=== PATIENT | female | born 1955 | race Caucasian/White ===

== ENCOUNTER 2019-12-30 07:41 | Emergency (ER) | payer BC, SELFPAY ==
[2019-12-30 07:47] VITALS: BP 151/69; PULSE 70; RESP 18; TEMP 36; O2SAT 97
--- NOTE | 2019-12-30 08:25 | ED.DENTAL ---
HPI - Dental/Oral General Chief complaint: Dental/Oral Stated complaint: dental pain Time Seen by Provider: 12/30/19 08:09 History of Present Illness HPI Narrative: Pain and swelling around lower molars on the left for a few days. Acutely worse in the past 24 hours. Tried getting in to see her dentist without success. She has a h/o prior dental abscess requiring surgery. No fever, SOB, dysphagia, or other complaints. Related Data Home Medications Medication Instructions Recorded Confirmed albuterol sulfate INHALATION 12/30/19 sertraline mg 12/30/19 Allergies Allergy/AdvReac Type Severity Reaction Status Date / Time mold Allergy Unknown Unknown Verified 12/30/19 07:50 Review of Systems Review of Systems: All systems reviewed & are unremarkable except as noted in HPI and below Constitutional: Constitutional: Denies fever(s) Eyes: Eyes: Denies change in vision ENT: Denies dysphagia and Denies sore throat Cardiovascular: Cardiovascular: Denies chest pain Respiratory: Respiratory: Denies dyspnea Gastrointestinal: Gastrointestinal: Denies nausea PMFSH Past Medical History Medical History (Updated 12/30/19 @ 10:07 by Lauri Sapp MD) Celiac disease Dental abscess Family History Family History Mother Family history of lung cancer Father Family history of coronary artery disease Social History Social History Smoking status: Current every day smoker Gender identity (if verbalized by the patient): Female Exam Const: General: healthy appearing, no acute distress and alert Orientation/consciousness: patient oriented x3 Limitations: no limitations HENMT: Other: Swelling, erythema, and fluctuant mass at left lower molars Eyes: Pupils: Equal, round and reactive pupils present Neck: Neck: normal visual inspection and no lymphadenopathy Resp: Effort & Inspection: normal respiratory effort Auscultation: clear to auscultation bilaterally Cardio: Rate: regular rate Rhythm: regular rhythm Skin: General skin exam: normal color Neuro: General: patient oriented x3 Speech: normal speech Course Vital Signs Vital signs: Vital Signs Temperature 36.0 C L 12/30/19 07:47 Pulse Rate 70 12/30/19 07:47 Respiratory Rate 18 12/30/19 07:47 Blood Pressure 151/69 H 12/30/19 07:47 Pulse Oximetry 97 12/30/19 07:47 Temperature 36.0 C L 12/30/19 07:47 Pulse Rate 67 12/30/19 10:17 Respiratory Rate 17 12/30/19 10:17 Blood Pressure 137/86 12/30/19 10:17 Pulse Oximetry 98 12/30/19 10:17 Procedures Abscess I/D oral: Date of Incision: 12/30/19 Time of Incision: 09:24 Side (if applicable): left Sedation/analgesia: none Local Anesthetic: lidocaine 1% and with epi Amount of anesthesia used (mL): 3 Technique: needle aspiration Amount of fluid expressed (mL): 0 Packing used?: none I&D Results: Nothing Abcess I&D Additional Comments: Swelling seems slightly reduced and fluctuant mass seems to be resolved although no pocket was found. Discharge Plan Discharge Clinical Impression: Dental infection Patient Disposition: Home, Self-Care Condition: Stable Instructions: Antibiotic Form, Dental Abscess (ED) Prescriptions: New penicillin V potassium 500 mg tablet 500 mg PO Q8H Qty: 30 RF: 0 No Action sertraline 100 mg tablet RF: 0 albuterol sulfate 90 mcg/actuation HFA aerosol inhaler INHALATION RF: 0 Follow-up/Referrals: Dale Wiseman MD [Primary Care Provider] - Stand Alone Forms: Work/School Release IP Discharge Date/Time: 12/30/19 10:17
[2019-12-30] MEDS: PENICILLIN V POTASSIUM 250 MG TABLET 500 MG PO (09:43)
[2019-12-30 10:17] VITALS: BP 137/86; PULSE 67; RESP 17; O2SAT 98
== END 2019-12-30 10:17 | disposition home or self-care (01) ==
PROVIDERS: Emergency Provider Emergency Medicine; PCP Family Medicine
DX: K04.7 Periapical abscess without sinus (principal); K90.0 Celiac disease; F17.200 Nicotine dependence, unspecified, uncomplicated
CPT/HCPCS: 41800; 99283; A9270

== ENCOUNTER 2021-05-19 09:45 | Emergency (ER) | payer BC, SELFPAY ==
--- NOTE | ~2021-05-19 | XR_ITS ---
EXAMINATION: XR chest 2V DATE: 05/19/2021 09:57 INDICATION: Worsening intermittent left-sided chest pain TECHNIQUE: PA and lateral views of the chest are obtained. COMPARISON: 04/25/2017 FINDINGS: The lungs are free of acute opacities. There is no pleural effusion or pneumothorax. The ca rdiomediastinal silhouette is normal. There is mild thoracic spondylosis. Surgical clips in the right upper quadrant are likely from prior cholecystectomy. IMPRESSION: 1. No acute cardiopulmonary abnormality. Reviewed, dictated and finalized at location A.
--- NOTE | 2021-05-19 09:46 | ECG_ITS ---
Measurements Intervals [place] Rate: 61 P: -17 NC: 107 QRS: 12 QRSD: 84 T: 16 QT: 404 QTc: 409 Interpretive Statements SINUS RHYTHM WITH SHORT NC INTERVAL BORDERLINE ECG Electronically Signed On 05-19-2021 10:30:41 CDT by Dash Maria D.O.
[2021-05-19 09:48] VITALS: BP 133/84; PULSE 61; RESP 18; TEMP 36.7; O2SAT 98
--- NOTE | 2021-05-19 11:06 | PC.NURSE ---
PT CALLED, NO ANSWER
== END 2021-05-19 11:20 | disposition left against medical advice (07) ==
PROVIDERS: Emergency Provider Emergency Medicine; PCP Family Medicine
DX: R07.9 Chest pain, unspecified (principal)
CPT/HCPCS: 71046; 93005; 99199

== ENCOUNTER 2021-10-14 07:37 | Emergency (ER) | payer BC, SELFPAY ==
--- NOTE | ~2021-10-14 | XR_ITS ---
XR chest 1V portable 10/14/2021 07:59 Indication: Cough Procedure: AP portable chest Comparison: Comparison to multiple prior studies sequentially, with oldest reviewed study dated 02/2017. Findings: There is mild bilateral pulmonary vascular prominence without overt edema. No focal pneumon ia.. No pleural effusion. Heart size normal. No pneumothorax. No acute osseous abnormality. Impression: 1: No acute cardiopulmonary disease. Reviewed, dictated and finalized at location D. [employer] Impression: 1: No acute cardiopulmonary disease.
--- NOTE | 2021-10-14 08:01 | ED.GENADULT ---
HPI - General Adult General Chief complaint: Upper Respiratory Infection Stated complaint: covid sx x3 weeks Time Seen by Provider: 10/14/21 07:56 Source: patient and RN notes reviewed History of Present Illness HPI narrative: Patient is a 66 y/o female complaining of nasal congestion, cough, bodyache and headache for 3 weeks. There is no alleviating or exacerbating factor. She has no fever or SOB. She states that she tested positive for COVID 3 weeks and still has persistent symptoms. Related Data Allergies Allergy/AdvReac Type Severity Reaction Status Date / Time mold Allergy Unknown Unknown Verified 08/19/20 14:56 Review of Systems Constitutional: Constitutional: Denies chills, Denies fever(s), Reports headache(s) and Denies weakness Eyes: Eyes: Denies blurry vision ENT: Reports headache(s), Reports nasal congestion and Denies neck pain Cardiovascular: Cardiovascular: Denies chest pain and Denies dyspnea Respiratory: Respiratory: Reports cough and Denies dyspnea Gastrointestinal: Gastrointestinal: Denies abdominal pain, Denies diarrhea, Denies nausea and Denies vomiting Genitourinary: Genitourinary: Denies hematuria and Denies dysuria Musculoskeletal: Musculoskeletal: Denies back pain and Denies neck pain Neurologic: Reports headache(s) and Denies weakness [facility] Past Medical History Medical History (Updated 10/14/21 @ 16:12 by Jayashree Ocampo MD) Celiac disease Dental abscess Family History Family History (System 08/19/20 @ 14:56 by Mari Tate) Mother Family history of lung cancer Father Family history of coronary artery disease Social History Social History (System 08/19/20 @ 14:56 by Mari Tate) Smoking packs per day: 0.5 Smoking cigarettes per day: 10.0 Years smoked: 30 Smoking pack-years: 15.00 Smoking status: Current every day smoker Tobacco type: cigarettes Alcohol intake: never Substance use: never Substance use type: does not use Gender identity (if verbalized by the patient): Female Exam Const: General: no acute distress and well developed Orientation/consciousness: oriented to person, oriented to place, oriented to time and patient oriented x3 HENMT: Head: normocephalic Ears: external ears normal General nose exam: Normal external nose present Eyes: General: appearance normal, both eyes and all related structures Conjunctivae: conjunctivae normal Neck: Neck: normal visual inspection and full ROM Chest: Chest palpation & inspection: normal inspection of the chest and no tenderness Resp: Effort & Inspection: normal respiratory effort Auscultation: clear to auscultation bilaterally Cardio: Rate: regular rate Rhythm: regular rhythm GI: GI Palp: No abdominal tenderness and Yes Soft to palpation Skin: General skin exam: normal color and turgor normal Neuro: General: oriented to person, oriented to place, oriented to time and patient oriented x3 Cognition (Neuro): normal cognition Extrem: General: normal to inspection, full ROM and no pedal edema Psych: Appearance: grossly normal Mental Status: mental status grossly normal Affect: normal affect Course Reevaluation(s) Reevaluation #1: Patient left ED before evaluation is done. She is considered to have left AMA. Date: 10/14/21 Vital Signs Vital signs: Vital Signs Temperature 36.8 C 10/14/21 08:03 Pulse Rate 66 10/14/21 08:03 Respiratory Rate 18 10/14/21 08:03 Blood Pressure 177/77 H 10/14/21 08:03 Pulse Oximetry 99 10/14/21 08:03 Temperature 36.8 C 10/14/21 08:03 Pulse Rate 69 10/14/21 09:34 Respiratory Rate 18 10/14/21 08:03 Blood Pressure 158/73 H 10/14/21 09:34 Pulse Oximetry 96 10/14/21 09:34 Medical Decision Making Vital Signs Vital Signs: Vital Signs Temperature 36.8 C 10/14/21 08:03 Pulse Rate 66 10/14/21 08:03 Respiratory Rate 18 10/14/21 08:03 Blood Pressure 177/77 H 10/14/21 08:03 Pulse Oximetry 99 01
[2021-10-14 08:03] VITALS: BP 177/77; PULSE 66; RESP 18; TEMP 36.8; O2SAT 99
[2021-10-14 08:08] VITALS: O2SAT 99
[2021-10-14 08:14] LABS: Basophils Absolute Auto 0.1 K/mm3 (0.0-0.1); Basophils Percent Auto 0.9 % (0.2-1.2); Eosinophils Absolute Auto 0.2 K/mm3 (0-0.3); Eosinophils Percent Auto 1.9 % (0-4.4); Hematocrit 47.9 % (37.0-47.0); Hemoglobin 15.7 g/dL (12.0-15.0); Immature Granulocyte Absolute 0.04 K/mm3 (0.00-0.031); Immature Granulocyte Percent A 0.4 % (0-0.5); Lymphocytes Absolute Auto 1.68 K/mm3 (0.9-3.2); Lymphocytes Percent Auto 18.6 % (18.3-44.2); Mean Corpuscular HGB Conc 32.8 g/dl (32-36); Mean Corpuscular Hemoglobin 31.2 pg (26-34); Mean Corpuscular Volume 95.2 fl (80-100); Mean Platelet Volume 9.1 fl (7.4-10.4); Monocytes Absolute Auto 0.5 K/mm3 (0.1-0.6); Monocytes Percent Auto 5.4 % (2.6-8.5); Neutrophils Absolute Auto 6.6 K/mm3 (1.3-6.7); Neutrophils Percent Auto 72.8 % (45.5-73.1); Platelet Count Result 321 k/mm3 (150-375); Red Blood Count 5.03 M/mm3 (4.2-5.4); Red Cell Distribution Width 13.6 % (11.5-14.5)
--- NOTE | 2021-10-14 08:16 | PC.NURSE ---
Patient is worried about being intubated. I told her her oxygen was 99% and she was most likely not going to be intubated today.
[2021-10-14 08:38] LABS: Anion Gap 9 mmol/L (8-16); Blood Urea Nitrogen 12 mg/dL (7-17); Calcium 9.3 mg/dL (8.4-10.2); Carbon Dioxide 24 mmol/L (22-30); Chloride 104 mmol/L (98-107); Estimated CRCL calculation 65 ml/min; Estimated Glomerular Filt Rate > 60; Glucose 159 mg/dL (65-110); Potassium 4.1 mmol/L (3.4-5.0); Sodium 137 mmol/L (137-145)
[2021-10-14 09:34] VITALS: BP 158/73; PULSE 69; O2SAT 96
[2021-10-14 19:08] LABS: SARS-CoV-2 RNA PCR Negative
== END 2021-10-14 12:05 | disposition left against medical advice (07) ==
PROVIDERS: Emergency Provider Emergency Medicine
DX: U07.1 COVID-19 (principal); J06.9 Acute upper respiratory infection, unspecified; K90.0 Celiac disease; F17.210 Nicotine dependence, cigarettes, uncomplicated
CPT/HCPCS: 36415; 71045; 80048; 85025; 87804; 99283; C9803; U0003; U0005

== ENCOUNTER 2022-03-16 01:22 | Day surgery (SDC) | payer BC, SELFPAY ==
[2022-01-22 14:01] VITALS: BMI 31.2
[2022-03-10 09:17] VITALS: BMI 30.7
[2022-03-16 06:49] VITALS: BMI 29.0
[2022-03-16 06:50] VITALS: BP 142/59; PULSE 73; RESP 16; TEMP 36; O2SAT 97
[2022-03-16] MEDS: LACTATED RINGERS 1,000 ML 150 ML IV CONT (06:58)
--- NOTE | 2022-03-16 07:46 | PM.HPGS ---
History of Present Illness History of Present Illness Consent: Risks, benefits, and alternatives have been discussed and questions answered. Patient agrees to proceed with procedure. Chief complaint: neoplasm screening Narrative: Cindy Price is a 66 year old female here for first screening colonoscopy Review of Systems Constitutional: Constitutional: Denies headache(s) and Denies weakness Eyes: Eyes: Denies blurry vision ENT: Reports Normal hearing present, Denies headache(s) and Denies neck pain Cardiovascular: Cardiovascular: Denies chest pain and Denies dyspnea Respiratory: Respiratory: Denies dyspnea Gastrointestinal: Gastrointestinal: Reports no additional gastrointestinal complaints Genitourinary: Genitourinary: Denies dysuria Musculoskeletal: Musculoskeletal: Denies neck pain Integumentary/Breasts: Skin/Breast: Denies dry skin Neurologic: Reports Normal hearing present, Denies headache(s) and Denies weakness Psychiatric: Psychiatric: Denies anxiety Endocrine: Endocrine: Denies change in body appearance Hematologic/Lymphatic: Hematologic/Lymphatic: Denies easy bleeding Allergic/Immunologic: Allergic/Immunologic: Denies urticaria PMFSH Past Medical History Medical History (Updated 11/27/21 @ 13:31 by GUERA Bañuelos) Celiac disease Dental abscess Dizziness Essential hypertension Family History Family History Mother Family history of lung cancer Father Family history of coronary artery disease Social History Social History Smoking packs per day: 0.5 Smoking cigarettes per day: 10.0 Years smoked: 30 Smoking pack-years: 15.00 Smoking status: Current every day smoker Tobacco type: cigarettes Additional smoking assessment comments: 1 pack daily 40 yrs Alcohol intake: never Substance use: never Substance use type: does not use Living arrangements: with family Gender identity (if verbalized by the patient): Female Spiritual care concerns: No Meds Home Medications and Allergies Home Medications Medication Instructions Recorded Confirmed Type albuterol sulfate 90 mcg/actuation 1 inh inhalation Q4H PRN shortness 11/27/21 01/22/22 Rx aerosol inhaler of breath or wheezing #6.7 grams sertraline 100 mg tablet 100 mg PO DAILY #30 tabs 12/24/21 01/22/22 Rx Allergies Allergy/AdvReac Type Severity Reaction Status Date / Time mold Allergy Unknown Unknown Verified 03/16/22 06:48 Vital Signs Vital Signs - 24 hr 03/16/22 06:50 Temperature 96.8 F L Pulse Rate 73 Respiratory Rate 16 Blood Pressure 142/59 H Pulse Oximetry 97 Oxygen Delivery Room Air Exam Const: General: comfortable and no acute distress HENMT: General nose exam: Normal nares present Eyes: General: appearance normal, both eyes and all related structures Neck: Neck: no JVD Resp: Auscultation: clear to auscultation bilaterally Cardio: Rate: regular rate Rhythm: regular rhythm GI: Inspection: non-distended GI Palp: Yes Soft to palpation Skin: General skin exam: normal color Neuro: General: gait normal Speech: normal speech Extrem: General: normal to inspection Psych: Mental Status: mental status grossly normal Assessment and Plan Assessment and plan (1) Screening for colon cancer: Code(s): Z12.11 - Encounter for screening for malignant neoplasm of colon Status: Acute Assessment and Plan: colonoscopy
--- NOTE | 2022-03-16 07:48 | P.PNAN_ITS ---
Anes - Initial Pre Proc Eval Procedure: Operation Date: 03/16/22 08:00 Proposed Procedures p Screening Colonoscopy - Johnson Tatum MD Date/Time: 03/16/22 07:48 Surgeon: Johnson Tatum MD Pre Op Diagnosis: neoplasm screening Patient Data Age: 66 Gender: F Height: 1.55 m Weight: 69.6 kg Last Vital Signs Temp 96.8 F L 03/16/22 06:50 Pulse 73 03/16/22 06:50 Resp 16 03/16/22 06:50 BP 142/59 H 03/16/22 06:50 Pulse Ox 97 03/16/22 06:50 O2 Del Method Room Air 03/16/22 06:50 Allergies Allergy/AdvReac Type Severity Reaction Status Date / Time mold Allergy Unknown Unknown Verified 03/16/22 06:48 Home Medications Medication Instructions Recorded Confirmed Type albuterol sulfate 90 mcg/actuation 1 inh inhalation Q4H PRN shortness 11/27/21 01/22/22 Rx aerosol inhaler of breath or wheezing #6.7 grams sertraline 100 mg tablet 100 mg PO DAILY #30 tabs 12/24/21 01/22/22 Rx Patient hx anesthesia problems: none Family hx anesthesia problems: none Results Review: All pre-operative results and documents have been reviewed as part of the pre- operative evaluation. [facility] Past Medical History Medical History (Updated 11/27/21 @ 13:31 by GUERA Bañuelos) Celiac disease Dental abscess Dizziness Essential hypertension Family History Family History Mother Family history of lung cancer Father Family history of coronary artery disease Social History Social History Smoking packs per day: 0.5 Smoking cigarettes per day: 10.0 Years smoked: 30 Smoking pack-years: 15.00 Smoking status: Current every day smoker Tobacco type: cigarettes Additional smoking assessment comments: 1 pack daily 40 yrs Alcohol intake: never Substance use: never Substance use type: does not use Living arrangements: with family Gender identity (if verbalized by the patient): Female Spiritual care concerns: No Anes - Eval Final PreProcedure Day of Procedure 03/16/22 07:48 Patient weight: normal Heart: regular rate and rhythm Lungs: clear to auscultation Airway: Mallampati scale class II Neurological: alert and oriented Last oral intake: >/= 8 hours ASA classification: II Emergent: no Anesthetic plan: proceed Anesthesia type and monitoring: general GIVS and standard monitoring Results Review: All pre-operative results and documents have been reviewed as part of the pre- operative evaluation. Informed Consent: The patient's anesthetic plan and its attendant risks and benefits were discussed with the patient/family/POA. Questions were solicited and answers provided to the satisfaction of the patient/family/POA.
[2022-03-16 08:09] VITALS: BP 104/57; PULSE 68; RESP 27; O2SAT 97
[2022-03-16 08:19] VITALS: BP 120/63; PULSE 63; RESP 22; O2SAT 98
[2022-03-16 08:29] VITALS: BP 135/68; PULSE 62; RESP 17; O2SAT 99
== END 2022-03-16 08:40 | disposition home or self-care (01) ==
PROVIDERS: PCP Internal Medicine; Referring Provider Nurse Practitioner; Visit Provider Internal Medicine Gastroenterology
PROC: 0DJD8ZZ Inspection of Lower Intestinal Tract, Via Natural or Artificial Opening Endoscopic (ICD-10-PCS; CPT 45378; principal; 2022-03-16 08:00)
DX: Z12.11 Encounter for screening for malignant neoplasm of colon (principal); D12.0 Benign neoplasm of cecum; D12.2 Benign neoplasm of ascending colon; K57.30 Diverticulosis of large intestine without perforation or abscess without bleeding; K64.8 Other hemorrhoids; Z79.51 Long term (current) use of inhaled steroids; F17.210 Nicotine dependence, cigarettes, uncomplicated
CPT/HCPCS: 45385; 88305; J2704; J7120

== ENCOUNTER 2023-12-10 09:04 | Outpatient (CLI) | payer MEDICARE, SELFPAY ==
--- NOTE | ~2023-12-10 | DEXA_ITS ---
Bone Density Report Name: DAMEON ARROYO Age: 68 Sex: Female Ethnicity: White Date of : 1955 Indication: postmenopausal; screening for osteoporosis; height loss; history of glucocorticoids; Referring Provider: CAYETANO GUTIERREZ Study: Bone densitometry was performed. Exam Date: December 10, 2023 Accession number: [id number] Bone Density: Region BMD T-score Z-score Classification AP Spine(L1-L4) 1.096 0.4 2.3 Normal Femoral Neck (Left) 0.703 -1.3 0.3 Osteopenia Total Hip (Left) 0.864 -0.6 0.7 Normal Femoral Neck (Right) 0.618 -2.1 -0.5 Osteopenia Total Hip (Right) 0.857 -0.7 0.6 Normal Total Hip Mean 0.861 -0.7 0.7 Normal World Health Organization criteria for BMD impression classify patients as: Normal (T-score at or above -1.0), Osteopenia (T-score between -1.0 and -2.5), or Osteoporosis (T-score at or below -2.5). 10-year Fracture Risk(1): Major Osteoporotic Fracture 19% Hip Fracture 5.6% Reported Risk Factors: [place] (), Neck BMD=0.618, BMI=26.5, smoking, glucocorticoids (1) FRAX(R) Version 3.08. Fracture probability calculated for an untreated patient. Fracture probability may be lower if the patient has received treatment. Clinical Information Provided by Patient: Smokes Has taken Glucocorticoids Has used the following medications: Vitamin D Patient maximum height was 63 No regular weight bearing exercise Does not regularly consume dairy products Drinks caffeinated beverages Onset of menses at age 13 Number of children 2 Impression: The patient has low bone mass, based on the Right Femoral Neck T-score. The patient has an estimated ten-year risk of hip fracture of 5.6% and an estimated ten-year risk of major fracture of 19%, based on the WHO FRAX algorithm. The patient has risk factors, including: smoking, history of glucocorticoid therapy. Discussion: BONE DENSITY IS LOW AT ONE OR MORE SKELETAL SITES. THE PATIENT'S BMD AND CLINICAL RISK FACTORS CONTRIBUTE TO THIS PATIENT'S INCREASED RISK OF FRACTURE. This patient's lowest T-score is low at one or more skeletal sites. It meets the World Health Organization's (WHO) criteria for ?low bone mass? (T-score between -1.0 and -2.5). The patient's 10-year risk of hip fracture as calculated by FRAX exceeds the threshold where pharmacological therapy is recommended by the National Osteoporosis Foundation (NOF). However, all treatment decisions require clinical judgment and consideration of individual patient factors, including patient preferences, comorbidities, previous drug use, risk factors not captured in the FRAX model (e.g., frailty, falls, vitamin D deficiency, increased bone turnover, interval significant decline in bone density) and possible under or overestimation of fracture risk by FRAX. The patient
--- NOTE | ~2023-12-10 | MM_ITS ---
EXAMINATION: MM screening [facility] BI w clarita HISTORY: Screening TECHNIQUE: Craniocaudal and mediolateral oblique 3-D tomosynthesis images were obtained and synthetic 2-D images were generated. CAD analysis was submitted and interpreted. COMPARISON: No prior mammogram is available for comparison at this institution. BREAST PARENCHYMAL COMPOSITION: There are scattered areas of fibroglandular density. FINDINGS: There is no evidence of suspicious mass, calcification, or architectural distortion to sugg est malignancy in either breast. There has been no suspicious interval change. IMPRESSION: 1. No mammographic evidence of malignancy. 2. Recommend routine screening mammography in one year. BI-RADS Category 1: Negative Reviewed, dictated and finalized at location A.
== END 2023-12-10 09:05 | disposition home or self-care (01) ==
PROVIDERS: PCP Nurse Practitioner Family; Visit Provider Nurse Practitioner Family
DX: Z12.31 Encounter for screening mammogram for malignant neoplasm of breast (principal); Z13.820 Encounter for screening for osteoporosis; M85.852 Other specified disorders of bone density and structure, left thigh; M85.851 Other specified disorders of bone density and structure, right thigh
CPT/HCPCS: 77063; 77067; 77080

== ENCOUNTER 2024-01-25 09:00 | Outpatient (CLI) | payer MEDICARE, SELFPAY ==
--- NOTE | ~2024-01-25 | XR_ITS ---
Clinical Indication: Shortness of breath PA and lateral views of the chest: Comparison: 10/14/2021 Findings: The lungs are clear, without evidence of focal consolidation or pleural effusion. Cardiome diastinal silhouette is within normal limits. Probable chronic rib fracture deformities the posterior right seventh rib. Impression: Clear lungs. Possible COPD. Reviewed, dictated and finalized at location . Impression: Clear lungs. Possible COPD.
== END 2024-01-25 09:01 | disposition home or self-care (01) ==
PROVIDERS: PCP Nurse Practitioner Family; Visit Provider Nurse Practitioner Family
DX: R06.02 Shortness of breath (principal); R05.9 Cough, unspecified
CPT/HCPCS: 71046